=== PATIENT | female | born 1995 | race Caucasian/White ===

== ENCOUNTER 2020-11-26 15:35 | Inpatient (IN) ==
[2020-11-26] MEDS ORDERED: EPHEDrine 50 MG/ML VIAL IVP PRN (15:50)
[2020-11-26] MEDS ORDERED: Epidural Premix (fent/bupiv) 110 ML EP SCH (16:00)
[2020-11-26] MEDS ORDERED: Ringers Solution, Lactated 1,000 ML IVC SCH (16:15)
[2020-11-26] MEDS ORDERED: Lidocaine 1% 20 ML MDV INFILT PRN (16:15)
[2020-11-26] MEDS ORDERED: Azithromycin 500 MG in 0.9 % Sodium Chloride 250 ML IVPB PRN (16:15)
[2020-11-26] MEDS ORDERED: Naloxone 0.4 MG/ML INJ IVP PRN (16:15)
[2020-11-26] MEDS ORDERED: Famotidine 20 MG/2 ML VIAL IVP PRN (16:15)
[2020-11-26] MEDS ORDERED: Ondansetron 4 MG/2 ML VIAL IVP PRN (16:15)
[2020-11-26] MEDS ORDERED: Metoclopramide 10 MG/2 ML VIAL IVP PRN (16:15)
[2020-11-26 17:02] LABS: Basophils % 0.3 %; Eosinophils # 0.2 K/mcL (0.0-0.6); Eosinophils % 1.5 %; Hemoglobin 14.3 g/dL (11.5-15.4); Immature Granulocytes % 0.3 % (0-4); Lymphocytes # 1.5 K/mcL (0.6-4.6); Lymphocytes % 11.1 %; Mean Corpuscular HGB Conc 34.9 g/dL (31.6-35.5); Mean Corpuscular Hemoglobin 32.4 pg (28.0-33.3); Mean Platelet Volume 9.6 fL (9.4-12.4); Monocytes # 0.9 K/mcL (0.0-1.3); Monocytes % 7.2 %; Neutrophils # 10.4 K/mcL (1.6-8.9); Platelet Count 284 K/mcL (140-400); Red Blood Count 4.41 M/mcL (3.82-4.97); Red Cell Distribution Width 13.9 % (11.5-14.5); Segmented Neutrophils % 79.6 %
[2020-11-26 18:58] LABS: Amphetamine Screen,Urine Negative ng/mL (Cutoff=1000); Barbiturate Screen,Urine Negative ng/mL (Cutoff=200); Benzodiazepines Screen,Urine Negative ng/mL (Cutoff=200); Cannabinoid Screen,Urine Negative ng/mL (Cutoff = 50); Cocaine Screen,Urine Negative ng/mL (Cutoff= 300); Opiate Screen,Urine Negative ng/mL (Cutoff=300); Phencyclidine Screen,Urine Negative ng/mL (Cutoff=25)
[2020-11-26] MEDS ORDERED: Oxytocin 20 units/ LR 1000 mL 20 UNIT/1,000 ML BAG IVC SCH (20:15)
[2020-11-27] MEDS ORDERED: Oxytocin 20 units/ LR 1000 mL 20 UNIT/1,000 ML BAG IVC SCH (02:35)
[2020-11-27] MEDS ORDERED: Acetaminophen 325 MG TABLET PO PRN (02:35)
[2020-11-27] MEDS ORDERED: Sennosides 8.6 MG TABLET PO PRN (02:35)
[2020-11-27] MEDS ORDERED: Lanolin 7 G OINT...G. TP PRN (02:35)
[2020-11-27] MEDS ORDERED: Benzocaine/Menthol 56 GM AEROSOL SPRAY TP PRN (02:35)
[2020-11-27] MEDS: Ibuprofen 600 MG TABLET PO PRN ×3 (03:24→20:03)
[2020-11-27 04:45] LABS: Basophils % 0.2 %; Eosinophils # 0.1 K/mcL (0.0-0.6); Eosinophils % 0.3 %; Hematocrit 40.3 % (35.3-44.9); Hemoglobin 14.3 g/dL (11.5-15.4); Immature Granulocytes % 0.4 % (0-4); Lymphocytes # 1.6 K/mcL (0.6-4.6); Lymphocytes % 7.7 %; Mean Corpuscular HGB Conc 35.5 g/dL (31.6-35.5); Mean Corpuscular Hemoglobin 32.8 pg (28.0-33.3); Mean Corpuscular Volume 92.4 fL (83.0-100.0); Mean Platelet Volume 9.8 fL (9.4-12.4); Monocytes # 1.5 K/mcL (0.0-1.3); Monocytes % 7.3 %; Neutrophils # 17.3 K/mcL (1.6-8.9); Platelet Count 272 K/mcL (140-400); Red Blood Count 4.36 M/mcL (3.82-4.97); Red Cell Distribution Width 13.7 % (11.5-14.5); Segmented Neutrophils % 84.1 %
[2020-11-27 04:46] LABS: White Blood Count 20.6 K/mcL (4.3-11.1)
[2020-11-27] MEDS ORDERED: Prenatal Vit/FA 1 EACH TABLET PO SCH (09:00)
[2020-11-27] MEDS ORDERED: Methylergonovine 0.2 MG/ML AMPUL IM ONE (11:29)
[2020-11-27] MEDS ORDERED: miSOPROStoL 100 MCG TABLET RC ONE (11:29)
[2020-11-27 22:21] VITALS: BP 103/69
== END 2020-11-27 22:30 | disposition home or self-care (01) | DRG 560 ==
LOC: 1NENULAB 15:35 → 1NENUOBS 11-27 03:09
PROVIDERS: ADMIT Obstetrics & Gynecology; ATTEND Obstetrics & Gynecology